=== PATIENT | male | born 1965 | race Hispanic/Latino ===

== ENCOUNTER → 2020-07-11 09:33 | Outpatient (CLI) | payer BC, SELFPAY ==
--- NOTE | ~2020-07-11 | XR_ITS ---
EXAMINATION: XR shoulder RT min 2V DATE: 07/11/2020 10:01 INDICATION: Right shoulder pain. TECHNIQUE: 4 views of right shoulder were obtained. COMPARISON: None. FINDINGS: Bone alignment is normal. No fracture. There is mild osteoarthritis of glenohumeral joint a nd severe osteoarthritis of acromioclavicular joint. IMPRESSION: 1. Polyarticular osteoarthritis. Reviewed, dictated and finalized at location A. CS ENGINEER
== END ==
PROVIDERS: PCP Family Medicine; Visit Provider Family Medicine
DX: M19.011 Primary osteoarthritis, right shoulder (principal)
CPT/HCPCS: 73030

== ENCOUNTER → 2022-04-18 10:48 | Outpatient (CLI) | payer BC, SELFPAY ==
--- NOTE | ~2022-04-18 | XR_ITS ---
EXAM: XR knee RT 3V DATE: 04/18/2022 11:02 HISTORY: TWISTING INJURY POPPING SOUND PAIN ANTERIOR KNEE . COMPARISON: None available. FINDINGS: Normal mineralization. No fracture or dislocation. No lytic or blastic lesion. Joint space s are maintained. Enthesopathy and soft tissue ossification at the medial aspect of the medial condyl e may reflect chronic MCL injury. No erosion or periosteal change. Soft tissues within normal limits. IMPRESSION: No acute osseous finding in the right knee. Reviewed, dictated and finalized at location K.
== END ==
PROVIDERS: PCP Family Medicine; Visit Provider Family Medicine
DX: M25.561 Pain in right knee (principal); S89.91XA Unspecified injury of right lower leg, initial encounter; X58.XXXA Exposure to other specified factors, initial encounter
CPT/HCPCS: 73562

== ENCOUNTER 2023-11-11 16:01 | Outpatient (CLI) | payer BC, SELFPAY ==
--- NOTE | ~2023-11-11 | XR_ITS ---
EXAM: XR knee RT 3V DATE: 11/11/2023 16:17 HISTORY: M25.561 medial knee pain after twisting inj 6 days ago . COMPARISON: 04/18/2022. FINDINGS: Normal mineralization. No fracture or dislocation. No lytic or blastic lesion. Mild tricom partmental degenerative change. MFC enthesopathy and medial soft tissue ossification. Moderate volume joint fluid. No erosion or periosteal change. Soft tissues within normal limits. IMPRESSION: No acute osseous finding. Moderate joint effusion. Reviewed, dictated and finalized at location K.
== END 2023-11-11 16:02 | disposition home or self-care (01) ==
LOC: ANHIMG 16:02
PROVIDERS: PCP Family Medicine; Visit Provider Physician Assistant Medical
DX: M25.461 Effusion, right knee (principal)
CPT/HCPCS: 73562

== ENCOUNTER 2024-02-08 08:28 | Outpatient (CLI) | payer BC, SELFPAY ==
--- NOTE | ~2024-02-08 | MR_ITS ---
EXAMINATION: MR knee RT wo con DATE: 02/08/2024 09:09 INDICATION: Medial right knee pain and weakness TECHNIQUE: Magnetic resonance imaging (MRI) of the right knee was performed without intravenous contr ast. Sequences included coronal PD-weighted FSE, coronal PD-weighted FS FSE, sagittal T2-weighted FS E, sagittal PD-weighted FS FSE and axial PD weighted fat saturated FSE. COMPARISON: None. FINDINGS: Medial compartment: Longitudinal horizontal tear extending to the inferior articular surface of the body and posterior ho rn of the medial meniscus. Small region of shallow chondral fissuring with at the lateral side of the central weightbearing medial femoral condyle. Lateral compartment: Lateral meniscus is normal. Articular cartilage is normal. Patellofemoral compartment: Partial-thickness chondral fissure at the inferior aspect of the lateral trochlea. Mild chondral swel ling with overlying mild surface regularity inferior aspect of the medial trochlea. Patellar cartilag e is normal. Ligaments and tendons: Anterior and posterior cruciate ligaments are normal. There is mild thickening and mild increased sig nal of the proximal medial collateral ligament with mild hypertrophic change along its epicondylar in sertion and single tiny intrarenal heterotopic ossicle consistent with sequela of chronic partial tea r. No surrounding edema to suggest recent injury. The fibular collateral ligament complex is normal. The extensor mechanism is normal. The visualized medial and lateral hamstring tendons as well as the iliotibial band are normal. Fluid: Physiologic amount of fluid in the joint space. There is a suprapatellar plical band. No loose osteoc hondral bodies identified. Osseous/other: Bone alignment is normal. Nonspecific minimal subarticular edema without evident overlying chondromal acia or fracture along the lateral rim of the lateral tibial plateau. No fracture or pathologic marro w replacing process. IMPRESSION: 1. Longitudinal horizontal tear of the medial meniscus. 2. Mild osteoarthritis with small regions of moderate grade chondromalacia in the medial and patellof emoral compartments. 3. Josue-Stieda lesion and mild scarring at the proximal medial collateral ligament consistent w ith sequela of chronic partial tear. 4. Minimal subarticular edema along the lateral rim of the lateral tibial plateau without overlying c hondromalacia or fracture which could be related to either contusion or stress reaction. Reviewed, dictated and finalized at location A. IMPRESSION: 1. Longitudinal horizontal tear of the medial meniscus. 2. Mild osteoarthritis with small regions of moderate grade chondromalacia in t he medial and patellofemoral compartments. 3. Josue-Stieda lesion and mild scarring at the proximal medial collateral ligament consistent with sequela of chronic partial tear. 4. Minimal subarticular edema along the lateral rim of the lateral tibial plate au without overlying chondromalacia or fracture which could be related to eithe r contusion or stress reaction.
== END 2024-02-08 08:29 ==
LOC: MICIMG 08:29
PROVIDERS: PCP Family Medicine; Visit Provider Physician Assistant
DX: S83.241A Other tear of medial meniscus, current injury, right knee, initial encounter (principal); X58.XXXA Exposure to other specified factors, initial encounter; M17.11 Unilateral primary osteoarthritis, right knee
CPT/HCPCS: 73721

== ENCOUNTER 2024-04-09 13:57 | Outpatient (CLI) | payer BC, SELFPAY ==
--- NOTE | 2024-04-09 14:15 | ECG_ITS ---
Test Date: 2024-04-09 14:18:57 Measurements Intervals [place] Rate: 73 P: 56 [place]: 158 QRS: 55 QRSD: 88 T: 56 QT: 386 QTc: 426 Interpretive Statements SINUS RHYTHM NORMAL ECG No previous ECG available for comparison Electronically Signed On 04-10-2024 14:36:29 CDT by Mann Aleman M.D.
== END 2024-04-09 13:58 | disposition home or self-care (01) ==
LOC: ANHCARD 14:02
PROVIDERS: PCP Family Medicine; Visit Provider Anesthesiology
DX: E78.2 Mixed hyperlipidemia (principal)
CPT/HCPCS: 93005

== ENCOUNTER 2024-04-10 02:04 | Day surgery (SDC) | payer BC, SELFPAY ==
[2024-04-06 10:32] VITALS: BMI 25.2
--- NOTE | 2024-04-06 10:53 | PC.NURSE ---
Report to the Outpatient Waiting Room, entrance under the green pavilion located off [facility], at time _06:00AM on date __Saturday04/10/24___. Planned Procedure Time: _07:30AM . Time changes happen often and if your time is changed the preop area will call you the afternoon before. - You and your visitor will be asked to self-screen and do not enter if you have any COVID symptoms. - A mask is optional within the hospital at this time. Patients may have clear liquids (water, carbonated beverages, clear teas, apple juice) until 3 hours prior to surgery with a maximum of 20 ounces. - No food from midnight until time of surgery Take the following medications with a SIP of water the morning of surgery: __NONE DO NOT STOP ANY OF YOUR OTHER PRESCRIPTION MEDICATIONS PRIOR TO SURGERY ?EXCEPT THE FOLLOWING Medications to discontinue per physician NONE Date to take last dose NONE Please no make-up, nail ukrainian, hairspray, perfume, deodorant, or body powder the day of surgery. No jewelry (including any body piercings) or valuables the day of surgery, leave them at home. Please take a shower or bath the night before, or the morning of, surgery with an antibacterial soap. Wear comfortable, loose fitting clothing. - Jewelry must be removed prior to entering the operating room. Rings and piercings that are not removed may be cut off. - The hospital will not accept responsibility for valuables. - Please leave all valuables, including medications, at home the day of surgery. If you are going home after surgery, a licensed belly dump driver must drive you home. - NO public transportation without another adult if you receive anesthesia. - We recommend that an adult stay with you for 24 hours following discharge. - We also recommend that you do not drive, make important decision, drink alcoholic beverages, or take any drugs that were not prescribed by your health care provider for at least 24 hours after your discharge time. Follow any additional instructions given to you from your surgeon. If you or anyone in your household have experienced Covid symptoms in the past week, please notify your surgeon or the nurse liaison at the phone number below for possible testing. Telephone instructions given to _ FREDO and asked if any additional questions and then verbalized understanding. Patient advised to call surgeon office or pre surgery nurse liaison [phone] if any additional questions.
--- NOTE | 2024-04-07 12:15 | PC.NURSE ---
Spoke with patient about arrival times to get EKG done. He had understood he could show up before 6, I informed him he'd need to be here by 330pm. Also discussed crutch training. He says he's used crutches a long time ago and feels he does not need any traing.
[2024-04-10] VITALS (10 sets, daily range): BP systolic 129–158; BP diastolic 67–93; PULSE 55–71; RESP 12–18; TEMP 36.1–36.4; O2SAT 95–100
[2024-04-10] MEDS: ACETAMINOPHEN 500 MG TABLET 1000 MG PO (06:25)
[2024-04-10] MEDS: CELECOXIB 200 MG CAPSULE PO (06:25)
[2024-04-10] MEDS: LACTATED RINGERS 1,000 ML 30 ML IV CONT ×2 (07:00→09:46)
--- NOTE | 2024-04-10 07:12 | P.PNAN_ITS ---
Anes - Initial Pre Proc Eval Procedure: Operation Date: 04/10/24 07:30 Proposed Procedures p Right Knee Arthroscopy, Proceed As Indicated - Jamal Arellano MD Date/Time: 04/10/24 07:12 Surgeon: Jamal Arellano MD Pre Op Diagnosis: right knee medial meniscus tear Patient Data Age: 58 Gender: M Height: 1.7 m Weight: 69.7 kg Last Vital Signs Temp 97.5 F L 04/10/24 06:44 Pulse 71 04/10/24 06:44 Resp 16 04/10/24 06:44 BP 129/81 04/10/24 06:44 Pulse Ox 100 04/10/24 06:44 O2 Del Method Room Air 04/10/24 06:44 Allergies Allergy/AdvReac Type Severity Reaction Status Date / Time No Known Allergies Allergy Verified 04/10/24 06:14 Home Medications Medication Instructions Recorded Confirmed Type rosuvastatin 5 mg tablet (Crestor) 5 mg PO DAILY #30 tabs 12/20/23 04/10/24 Rx Patient hx anesthesia problems: none Family hx anesthesia problems: none Results Review: All pre-operative results and documents have been reviewed as part of the pre- operative evaluation. [facility] Past Medical History Medical History COVID-19 HSV (herpes simplex virus) anogenital infection Insomnia Mixed hyperlipidemia Wellness examination Social History Social History Social History: caffeine use Smoking status: Never smoker Second hand tobacco smoke exposure: No Alcohol intake: never Substance use: never Substance use type: does not use Living arrangements: with family Occupation/Education: occupation Additional occupation/education comments: [employer] Gender identity (if verbalized by the patient): Male Sexual Orientation (if Verbalized by the Patient): Straight or Heterosexual Spiritual care concerns: No Anes - Eval Final PreProcedure Day of Procedure 04/10/24 07:12 Patient weight: normal Heart: regular rate and rhythm Lungs: clear to auscultation Airway: Mallampati scale class 1 Neurological: alert and oriented Last oral intake: >/= 8 hours ASA classification: I Emergent: no Anesthetic plan: proceed Anesthesia type and monitoring: general GIVS and standard monitoring Results Review: All pre-operative results and documents have been reviewed as part of the pre- operative evaluation. Informed Consent: The patient's anesthetic plan and its attendant risks and benefits were discus sed with the patient/family/POA. Questions were solicited and answers provided to the satisfaction of the patient/family/POA.
--- NOTE | 2024-04-10 07:24 | WPDHPUPDATE1 ---
History and Physical Update Update Date/Time: 04/10/24 07:24 History and Physical has been reviewed, including an updated exam of the patient. There are NO changes in the patient's condition. Risks, benefits, and alternatives have been discussed and questions answered. Patient agrees to proceed with procedure.
[2024-04-10] MEDS: ceFAZolin 2 GM/D5W 50 ML 2 GM/50 ML BAG IVPB (07:47)
[2024-04-10] MEDS: BUPivacaine HCL 0.5% PF 30 ML VIAL INFILTRATE (08:08)
--- NOTE | 2024-04-10 09:17 | P.OP_ITS ---
Procedure Note - Detailed Date of Procedure 04/10/24 Pre-op Diagnosis right knee medial meniscus tear Post-op Diagnosis Same Procedure Performed RIGHT KNEE SCOPE Surgeon Jamal Arellano MD Anesthesia General Description of Procedure PATIENT WAS TAKEN TO THE OR. THE RIGHT LEG WAS PREPPED AND DRAPED STERILE. TROC ARS WERE PLACED IN THE USUAL FASHION. CAMERA WAS INTRODUCED. THERE WAS MINIMAL CHONDROMALACIA TO THE PATELLA FEMORAL JOINT. THERE WAS A LOT OF SYNOVITIS IN ALL COMPARTMENTS. THE MEDIAL COMPARTMENT SHOWED MILD CHONDROMALACIA TO THE MEDIAL FEMORAL CONDYLE. A SHAVER WAS USED TO PREFORM A CHONDROPLASTY. THERE WAS A LARGE BUCKET HANDLE TYPE COMPLEX MEDIAL MENISCUS TEAR. THE TEAR WAS RESECTED WITH A BITER AND A SHAVER DOWN TO A SMOOTH BASE. THE ACL WAS INTACT. THE LATERAL MENISCUS WAS NOT TORN. THE LAT COMPARTMENT HAD MINIMAL CHONDROMALACIA. CHONDROPLASTY WAS PREFORMED. A SYNOVECTOMY WAS PREFORMED WELL. THE PATELLO FEMORAL JOINT UNDERWENT MINIMAL CHONDROPLASTY. SYNOVECTOMY WAS PREFORMED IN THE SUPERIOR MEDIAL COMPARTMENT. THE WOUNDS WERE APPROXIMATED WITH 4.0 NYLON. STERILE DRESSING WAS APPLIED. PATIENT WAS EXTUBATED. Estimated Blood Loss 5 Complications No immediate complications Condition Stable Disposition PACU
[2024-04-10] MEDS: fentaNYL CITRATE INJ (*CRX) 100 MCG/2 ML VIAL 25 MCG IV PUSH ×4 (09:55→10:10)
[2024-04-10] MEDS: ONDANSETRON INJ 4 MG/2 ML VIAL IV PUSH (10:33)
[2024-04-10] MEDS: diphenhydrAMINE HCl INJ 50 MG/ML VIAL 12.5 MG IV PUSH (11:31)
== END 2024-04-10 12:40 | disposition home or self-care (01) ==
PROVIDERS: PCP Family Medicine; Visit Provider Orthopaedic Surgery
PROC: (CPT 29870; principal; 2024-04-10 07:30)
DX: S83.231A Complex tear of medial meniscus, current injury, right knee, initial encounter (principal); S83.211A Bucket-handle tear of medial meniscus, current injury, right knee, initial encounter; X50.9XXA Other and unspecified overexertion or strenuous movements or postures, initial encounter; M65.9 Synovitis and tenosynovitis, unspecified; M94.261 Chondromalacia, right knee; E78.2 Mixed hyperlipidemia
CPT/HCPCS: 29881; A9270; J0690; J1200; J2250; J2405; J2704; J3010; J7120